=== PATIENT | female | born 1950 | race Caucasian/White ===

== ENCOUNTER 2017-04-17 13:21 | Emergency (ER) | payer MEDICARE ==
[2017-04-17] MEDS ORDERED: VERSED 5 MG/5 ML IV ONE (13:22)
[2017-04-17] MEDS ORDERED: Zemuron 100 MG/10 ML IV ONE (13:22)
[2017-04-17] MEDS ORDERED: Lasix 40 MG/4 ML ONE (13:26)
[2017-04-17] MEDS ORDERED: Sodium Chloride 0.9% 1000 ML 1,000 ML ONE (13:35)
[2017-04-17] MEDS ORDERED: Lasix 40 MG/4 ML IV ONE (13:59)
--- NOTE | 2017-04-17 13:59 | ERPHSYRPT ---
- History of Present Illness Time Seen by Provider: 04/17/17 13:54 Source: EMS Exam Limitations: clinical condition Physician History: The patient is a 66-year-old female brought in from a [facility] by ambulance for shortness of breath. It is unknown when the shortness of breath began. [facility] but diverted here because of the seriousness of the shortness of breath. The patient has not spoken during the entire ambulance trip nor upon arrival. She was placed on BiPAP by the ambulance, and given a DuoNeb treatment followed by Solu-Medrol 125 mg IV. She is a full code. Her past medical history is significant for CHF , COPD, cardiac arrhythmia, hypertension, and pneumonia. Daughter arrives late and states she was feeding pt. Suddenly food came out her nose and mouth, followed by pt becoming unresponsive. Timing/Duration: today Activities at Onset: none Severity of Dyspnea-Max: severe Severity of Dyspnea-Current: severe Possible Cause: occasional episodes Modifying Factors: Improves With: nothing Associated Symptoms: leg swelling Allergies/Adverse Reactions: mometasone furoate [From Nasonex] Adverse Reaction (Verified 04/17/17 13:43) Penicillins Adverse Reaction (Verified 04/17/17 13:43) rash, high fever Home Medications: Alprazolam 0.25 mg [xanAX 0.25 MG] 0.25 mg PO Q6HPRN PRN 10/29/15 [History ] Aspirin 81 g PO DAILY 10/29/15 [History] Bumetanide 1 mg [Bumex 1 mg] 1 mg PO BID 10/29/15 [History] Clopidogrel Bisulfate 75 mg [PLAVIX 75 MG Tablet] 75 mg PO DAILY 10/29/15 [History] Fluticasone Propionate [Flonase NASAL] 50 mcg IH DAILY 10/29/15 [History] Metoclopramide HCl 5 mg [Reglan 5 MG] 5 mg PO TID 10/29/15 [History] Midodrine HCl 10 mg PO TID 10/29/15 [History] Pantoprazole Sodium 40 mg PO DAILY 10/29/15 [History] Promethazine HCl 25 mg [Phenergan 25 mg] 25 mg PO DAILY 10/29/15 [History] Hx Tetanus, Diphtheria Vaccination/Date Given: Yes Hx Influenza Vaccination/Date Given: Yes (2014) Hx Pneumococcal Vaccination/Date Given: Yes (2013) - Review of Systems Constitutional: No Fever, No Chills Eyes: No Symptoms Ears, Nose, & Throat: No Symptoms Respiratory: Dyspnea Cardiac: No Chest Pain, No Edema, No Syncope Abdominal/Gastrointestinal: No Abdominal Pain, No Nausea, No Vomiting, No Diarrhea Genitourinary Symptoms: No Dysuria Musculoskeletal: No Back Pain, No Neck Pain Skin: No Rash Neurological: No Dizziness, No Focal Weakness, No Sensory Changes Psychological: No Symptoms Endocrine: No Symptoms Hematologic/Lymphatic: No Symptoms Immunological/Allergic: No Symptoms All Other Systems: Reviewed and Negative - Past Medical History Pertinent Past Medical History: Yes Neurological History: Migraines ENT History: Cataracts Cardiac History: Arrhythmia, Congestive Heart Failure, Coronary Artery Disease, Hypertension, Myocardial Infarction ([place]) Respiratory History: Asthma, Bronchitis, CHF, COPD, Emphysema Endocrine Medical History: No Pertinent History Musculoskeletal History: Arthritis, Degenerative Disk Disease, Osteoarthritis GI Medical History: No Pertinent History History: No Pertinent History Psycho-Social History: Anxiety Female Reproductive Disorders: No Pertinent History Other Medical History: PACER/DEFIB - Past Surgical History Past Surgical History: Yes Neuro Surgical History: No Pertinent History Cardiac: CABG, Cardiac Catheterization, Internal Defibrillator, Pacemaker Respiratory: Chest Surgery Gastrointestinal: Appendectomy Genitourinary: No Pertinent History Musculoskeletal: No Pertinent History Female Surgical History: Section, Hysterectomy, Lumpectomy Other Surgical History: ovarian cysts removed; cataract removal bilateral eyes, carotid stent - Social History Smoking Status: Current every day smoker How long have you smoked: YRS Exposure to second hand smoke: No Drug Use: none Patient Lives Alone: Yes - Nursing Vital Signs Nursing Vital Signs: Initial Vital Signs Pulse Rate 120 H 04/17/17 13:26 Respiratory Rate 44 H 04/17/17 13:26 Blood Pressure 117/85 04/17/17 13:26 O2 Sat by Pulse Oximetry 99 04/17/17 13:26 - Physical Exam General Appearance: severe distress Eye Exam: PERRL/EOMI Neck Exam: normal inspection, supple Respiratory Exam: respiratory distress, crackles/rales, rhonchi Cardiovascular/Chest Exam: tachycardia Abdominal/Gastrointestinal Exam: soft, No tenderness, No distention, No mass Rectal Exam: not done Extremity Exam: pedal edema Skin Exam: cyanosis SpO2 Interpretation: normal SpO2: 99 Oxygen Delivery: CPAP Ordered Tests: Active Orders 24 hr Category Date Time Status Electrical Design Technician STAT Care 04/17/17 14:01 Active Catheter-Leonard Meraz STAT Care 04/17/17 13:59 Active EKG-ER Only STAT Care 04/17/17 13:59 Active IV Insertion STAT Care 04/17/17 13:59 Active Oxygen-ED Only NON-REBREATHER 100% Care 04/17/17 13:59 Active Pulse Oximetry (ED) STAT Care 04/17/17 13:59 Active Rectal Temperature STAT Care 04/17/17 13:59 Active CHEST 1 VIEW (PORTABLE) Routine Exams 04/17/17 Taken ABG [ARTERIAL BLOOD GASES] Urgent Lab 04/17/17 14:00 Results CBC W DIFF Stat Lab 04/17/17 13:25 Received CMP Stat Lab 04/17/17 13:25 Received D-DIMER QUANTITATION Stat Lab 04/17/17 13:25 Received Glucose,Critical Care Urgent Lab 04/17/17 Ordered Lactic Acid Stat Lab 04/17/17 Ordered Lactic Acid Urgent Lab 04/17/17 14:00 Results NT PRO BNP Stat Lab 04/17/17 13:25 Received PROTIME WITH INR Stat Lab 04/17/17 13:25 Received PTT Stat Lab 04/17/17 13:25 Received TROPONIN Q3H Lab 04/17/17 14:00 Ordered TROPONIN Q3H Lab 04/17/17 17:00 Ordered TROPONIN Q3H Lab 04/17/17 20:00 Ordered TROPONIN Q3H Lab 04/17/17 23:00 Ordered TROPONIN Q3H Lab 04/18/17 02:00 Ordered UA W/RFX UR CULTURE Stat Lab 04/17/17 14:00 Ordered VBG [VENOUS BLOOD GAS] Stat Lab 04/17/17 13:35 Completed VENOUS BLOOD GAS Stat Lab 04/17/17 13:59 Ordered BiPap/CPAP Assessment STAT RT 04/17/17 13:59 Active Medication Summary Generic Name Dose Route Start Last Admin Trade Name Freq PRN Reason Stop Dose Admin Midazolam HCl 50 mg/ Sodium 250 mls @ 10 mls/hr 04/17/17 14:00 Chloride IV 05/17/17 13:59 .Q24H ODILON Discontinued Medications Generic Name Dose Route Start Last Admin Trade Name Mishel PRN Reason Stop Dose Admin Furosemide Confirm 04/17/17 13:26 Lasix 40 Mg/4 Ml Administered 04/17/17 13:27 Dose 40 mg .ROUTE .STK-MED ONE Furosemide 40 mg 04/17/17 13:59 Lasix 40 Mg/4 Ml IV 04/17/17 14:00 STAT ONE Sodium Chloride Confirm 04/17/17 13:35 Sodium Chloride 0.9% 1000 Ml Administered 04/17/17 13:36 Dose 1,000 mls @ ud .ROUTE .STK-MED ONE Lab/Rad Data: Laboratory Results 04/17/17 04/17/17 Range/Units 14:00 13:35 Puncture Site LEFT RADIAL pCO2 40 (35-45) mmHg pO2 273 H* (75-100) mmHg Base Excess 0.7 (-2.0-2.0) O2 Saturation 96.7 (94-100) g/dF ABG pH 7.41 (7.35-7.45) ABG HCO3 25.4 (22-28) ABG O2 Sat (Measured) 100.0 (95-100) % Ramírez Test NOT APPLICABLE VBG pH 7.26 L (7.32-7.42) VBG pCO2 at Pat Temp 59 H (42-55) mm/Hg VBG pO2 at Pat Temp 27 (25-40) mm/Hg VBG HCO3 26.5 (22-28) meq/L VBG O2 Sat (Sebastian) 40.8 L (95-100) VBG Base Excess -1.3 (-2.0-2.0) VBG Hemoglobin 10.6 VBG Carboxyhemoglobin 1.9 (0.0-6.9) % T HGB A-a Gradient 176 a/A Ratio 0.61 Hemoglobin 10.1 Carboxyhemoglobin 2.1 (0.0-6.9) % THgb Methemoglobin 1.2 L (1.4-1.5) % Potassium 5.3 H (3.5-5.1) POC Potassium 6.1 H* (3.5-5.1) Temperature 37.0 C POC O2 Flow Rate 70 % Vent Mode A/C Tidal Volume 550 cc PEEP 5 cmH2O Lactic Acid 3.8 H (0.4-2.0) - Progress Progress: improved Air Movement: fair Progress Note: 04/17/17 13:57 The patient was in respiratory distress so we decided to intubate her. She was premedicated with Versed 3 mg IV and then paralyzed with rocuronium 70 mg IV. Patient was successfully intubated. Meraz catheter was placed. Lasix 40 mg was given. The patient was placed on a Versed drip. The patient is being stabilized for transfer. Blood Culture(s) Obtained: No Antibiotics given: Yes - Departure Time of Disposition: 14:19 Departure Disposition: Transfer (Transfer to [facility] ER per DR Reynolds.) Clinical Impression: Dyspnea Condition: Fair Critical Care Time: Yes Critical Care Time(excluding separately billable procedures): 30-74 minutes Referrals: IRAM RODARTE [ACTIVE STAFF] -
[2017-04-17] MEDS ORDERED: Versed 50 MG/ 10 Ml MDV*** 50 MG in Sodium Chloride 0.9% 250 ML 240 ML IV SCH (14:00)
[2017-04-17 14:07] LABS: VBG BASE EXCESS -1.3 (-2.0-2.0); VBG CARBOXYHEMOGLOBIN 1.9 % T HGB (0.0-6.9); VBG HCO3- 26.5 meq/L (22-28); VBG HEMOGLOBIN 10.6
[2017-04-17 14:10] LABS: A-aADO2 176; ARTERIAL BLD GAS TIDAL VOLUME 550 cc; ARTERIAL BLOOD GAS BASE EXCESS 0.7 (-2.0-2.0); ARTERIAL BLOOD GAS FIO2 70 %; ARTERIAL BLOOD GAS pH 7.41 (7.35-7.45)
[2017-04-17] MEDS ORDERED: CLINDAMYCIN-D5W 600 MG/50 ML*** 600 MG/50 ML BAG IV STA (14:17)
[2017-04-17] MEDS ORDERED: ROCEPHIN 1 Gm-D5w 50 ml Bag** 1 G/50 ML IVPB IV STA (14:17)
[2017-04-17 14:18] LABS: Mean Cell Volume 96.9 fl (78-100); Mean Corpuscular Hemoglobin 29.3 pg (26-32); Mean Platelet Volume 12.9 fl (6-9.5); Platelet Count 78 K/mm3 (150-450); Red Blood Count 3.51 M/mm3 (4.1-5.4); Red Cell Distribution Width 18.1 % (11.5-14.0); White Blood Count 17.6 K/mm3 (4.0-10.5)
[2017-04-17 14:20] LABS: INR 1.9 (0.8-3.0); PROTIME 21.3 SECONDS (9.95-12.35)
[2017-04-17] MEDS ORDERED: ROCEPHIN 1 Gm-D5w 50 ml Bag** 1 G/50 ML IVPB IV ONE (14:20)
[2017-04-17] MEDS ORDERED: CLINDAMYCIN-D5W 600 MG/50 ML*** 600 MG/50 ML BAG IV ONE (14:20)
[2017-04-17 14:23] LABS: PTT 29.8 SECONDS (25.3-37.0)
--- NOTE | 2017-04-17 14:28 | XRAY ---
Indication: Short of breath. Comparison: July 19, 2016. Portable chest demonstrates new endotracheal tube tip just above the redd directed towards the right mainstem bronchus. Also new NG tube with the tip coiled in the stomach. There is again left base pleural-parenchymal consolidating opacity less than before. Right lung remains clear. Heart is not enlarged and again demonstrates CABG surgery and left-sided AICD. Impression: 1. Endotracheal tube tip just above the redd. NG tube tip coiled in the stomach. 2. Again left base pleural-parenchymal consolidating opacity less than before.
[2017-04-17 14:36] LABS: VBG O2 SATURATION 40.8 (95-100); VBG pH 7.26 (7.32-7.42)
[2017-04-17 14:37] LABS: VBG POTASSIUM 6.1 (3.5-5.1)
[2017-04-17 14:38] LABS: ADD URINE CULTURE? YES (NO); ARTERIAL BLOOD GAS PO2 273 mmHg (75-100); Bilirubin NEGATIVE (NEGATIVE); Blood 250 Ery/ul (0-5); Glucose NEGATIVE (NEGATIVE); Lactic Acid 3.8 (0.4-2.0); Leukocyte Esterase NEGATIVE (NEGATIVE)
[2017-04-17 14:39] LABS: COMPLETE URINE MICROSCOPIC? YES
[2017-04-17 14:43] LABS: Collection Type CATH
[2017-04-17 14:44] LABS: ALBUMIN 3.5 g/dL (3.4-5.0); ALKALINE PHOSPHATASE 383 U/L (46-116); ANION GAP 20.9 MEQ/L (5-15); BLOOD UREA NITROGEN 63 mg/dL (9-20); CHLORIDE 100 mEq/L (98-107); Carbon Dioxide 21.8 mEq/L (21-32); Glucose 184 MG/DL (70-110); SGOT/AST 866 U/L (15-37); SODIUM 137 mEq/L (136-145); Total Protein 7.1 gm/dL (6.4-8.2)
[2017-04-17 14:44] LABS: Lactic Acid 6.4 (0.4-2.0)
[2017-04-17 14:47] LABS: Bacteria FEW /HPF (NEGATIVE); Epithelial Cells FEW /HPF (FEW); WBC 0-2 /HPF (0-5)
[2017-04-17 14:53] LABS: Potassium 6.2 mEq/L (3.5-5.1); SGPT/ALT 1683 U/L (12-78)
[2017-04-17 15:14] LABS: BAND 2 % (0.0-2.0); Nucleated Red Blood Cell 2 %; Total Cells Counted 100
[2017-04-17 15:15] LABS: ANISOCYTOSIS 1+
[2017-04-17 15:16] LABS: Polychromasia 1+
[2017-04-17 15:17] LABS: Platelet Estimate DECREASED (NORMAL)
[2017-04-17 15:35] VITALS: BP 85/55; PULSE 105; O2SAT 100
== END 2017-04-17 15:10 | disposition short-term general hospital (02) ==
LOC: ED 13:21
DX: R06.00 Dyspnea, unspecified (principal); I50.9 Heart failure, unspecified; J44.9 Chronic obstructive pulmonary disease, unspecified; I10 Essential (primary) hypertension; Z79.899 Other long term (current) drug therapy
CPT/HCPCS: 31500; 36000; 36415; 36600; 51702; 71010; 80053; 81000; 82375; 82803; 82805; 82947; 83605; 83880; 84484; 85025; 85379; 85610; 85730; 87086; 93005; 93041; 94002; 94770; 94799; 96360; 96361; 96365; 96366; 99291; 99292; J0696; J1940; J2250